=== PATIENT | male | born 1960 | race Caucasian/White ===

== ENCOUNTER 2016-08-12 16:44 | Emergency (ER) | payer OTHER ==
[~2016-08-12] VITALS: Ht 152.4 cm; Wt 68.2 kg
[~2016-08-12 16:44] MED LIST: GABA100C PO; NALT50 PO; OMEP20 PO; QUET25TA PO
[2016-08-12 18:48] VITALS: BP 123/75
== END 2016-08-12 20:18 | disposition left against medical advice (07) ==
LOC: EMS 16:46
DX: F10.129 Alcohol abuse with intoxication, unspecified (principal); F20.9 Schizophrenia, unspecified; F31.9 Bipolar disorder, unspecified; I10 Essential (primary) hypertension; Z88.8 Allergy status to other drugs, medicaments and biological substances; Y90.9 Presence of alcohol in blood, level not specified
CPT/HCPCS: 99283

== ENCOUNTER 2016-08-13 04:56 | Emergency (ER) | payer OTHER ==
[~2016-08-13] VITALS: Ht 152.4 cm; Wt 72.7 kg
[2016-08-13 05:55] LABS: BASOPHILS % (AUTO) 1.2 % (0.0-2.0); EOSINOPHILS % (AUTO) 4.8 % (1.0-6.0); HEMATOCRIT 34.7 % (41-53); HEMOGLOBIN 11.8 g/dL (13.5-17.5); LYMPHOCYTES # (AUTO) 1.1 K/uL (1.0-4.8); LYMPHOCYTES % (AUTO) 35.3 % (22.0-44.0); MEAN CORPUSCULAR HEMOGLOBIN 29.2 pg (26.0-34.0); MEAN CORPUSCULAR HGB CONC 34.1 G/dL (31.0-37.0); MEAN CORPUSCULAR VOLUME 86 fL (80-100); MONOCYTES # (AUTO) 0.2 K/uL (0.1-1.0); MONOCYTES % (AUTO) 8.2 % (2.0-9.0); NEUTROPHILS # (AUTO) 1.5 K/uL (1.8-7.7); NEUTROPHILS % (AUTO) 50.5 % (40.0-70.0); PLATELET COUNT (AUTO) 130 K/uL (150-450); RED BLOOD CELL COUNT(AUTO) 4.04 MIL/uL (4.50-5.90); RED CELL DISTRIBUTION WIDTH 14.1 % (11.5-14.5)
[2016-08-13 06:02] LABS: ANION GAP 7 mmol/L (8-16); CALCIUM, TOTAL 7.9 mg/dL (8.8-10.5); CARBON DIOXIDE 30 mmol/L (22-29); CHLORIDE 104 mmol/L (98-107); POTASSIUM 3.4 mmol/L (3.5-5.1); SODIUM SERUM 141 mmol/L (136-145); UREA NITROGEN, BLOOD 7 mg/dL (7-18)
[2016-08-13 06:07] LABS: CREATININE 0.51 mg/dL (0.60-1.30); GLOMERULAR FILTR. RATE CALC > 60 mL/min (>60)
[2016-08-13 11:29] VITALS: BP 100/82
== END 2016-08-13 12:18 | disposition home or self-care (01) ==
LOC: EMS 04:58
DX: T51.91XA Toxic effect of unspecified alcohol, accidental (unintentional), initial encounter (principal); I10 Essential (primary) hypertension; Z88.8 Allergy status to other drugs, medicaments and biological substances; Y92.89 Other specified places as the place of occurrence of the external cause
CPT/HCPCS: 36415; 80048; 85025; 99284; G0480

== ENCOUNTER 2016-08-13 16:16 | Emergency (ER) | payer OTHER ==
[~2016-08-13] VITALS: Ht 172.7 cm; Wt 90.9 kg
[2016-08-13 17:21] LABS: GLUCOSE,POINT OF CARE 120 MG/DL (70-110)
[2016-08-13] MEDS ORDERED: SODIUM CHLORIDE 0.9% 1,000 ML IV ONE (18:15)
[2016-08-13 18:31] LABS: BASOPHILS % (AUTO) 0.7 % (0.0-2.0); EOSINOPHILS % (AUTO) 2.5 % (1.0-6.0); HEMOGLOBIN 11.9 g/dL (13.5-17.5); LYMPHOCYTES # (AUTO) 0.9 K/uL (1.0-4.8); LYMPHOCYTES % (AUTO) 28.1 % (22.0-44.0); MEAN CORPUSCULAR HEMOGLOBIN 29.4 pg (26.0-34.0); MEAN CORPUSCULAR HGB CONC 33.9 G/dL (31.0-37.0); MEAN CORPUSCULAR VOLUME 87 fL (80-100); MONOCYTES # (AUTO) 0.2 K/uL (0.1-1.0); MONOCYTES % (AUTO) 6.4 % (2.0-9.0); NEUTROPHILS # (AUTO) 1.9 K/uL (1.8-7.7); NEUTROPHILS % (AUTO) 62.3 % (40.0-70.0); PLATELET COUNT (AUTO) 126 K/uL (150-450); RED BLOOD CELL COUNT(AUTO) 4.04 MIL/uL (4.50-5.90); RED CELL DISTRIBUTION WIDTH 13.7 % (11.5-14.5); WHITE BLOOD COUNT (AUTO) 3.1 K/uL (4.5-11.0)
[2016-08-13 18:46] LABS: ANION GAP 7 mmol/L (8-16); CARBON DIOXIDE 30 mmol/L (22-29); CHLORIDE 103 mmol/L (98-107); CREATININE 0.59 mg/dL (0.60-1.30); GLOMERULAR FILTR. RATE CALC > 60 mL/min (>60); POTASSIUM 3.9 mmol/L (3.5-5.1); SODIUM SERUM 140 mmol/L (136-145); UREA NITROGEN, BLOOD 5 mg/dL (7-18)
[2016-08-13 18:52] LABS: ALANINE AMINOTRANSFERASE 78 U/L (12-78); ASPARTATE AMINOTRANSFERASE 135 U/L (15-37); BILIRUBIN,TOTAL 0.5 mg/dL (0.1-1.0); TOTAL PROTEIN, SERUM 6.5 g/dL (6.4-8.2)
[2016-08-13 21:06] VITALS: BP 125/74
== END 2016-08-13 21:29 | disposition home or self-care (01) ==
LOC: EMS 16:18
DX: F10.229 Alcohol dependence with intoxication, unspecified (principal); I10 Essential (primary) hypertension; Z88.8 Allergy status to other drugs, medicaments and biological substances; Y90.8 Blood alcohol level of 240 mg/100 ml or more
CPT/HCPCS: 36415; 80053; 82962; 83690; 85025; 96360; 96361; 99285; G0480; J7030

== ENCOUNTER 2018-04-21 16:32 | Emergency (ER) | payer OTHER ==
[~2018-04-21] VITALS: Ht 152.4 cm; Wt 89.5 kg
[~2018-04-21 16:32] MED LIST changes: -NALT50 PO; +NALT50TA6 PO
[2018-04-21 20:40] VITALS: BP 126/68
== END 2018-04-21 21:21 | disposition home or self-care (01) ==
LOC: EMS 16:33
DX: F10.229 Alcohol dependence with intoxication, unspecified (principal); F31.9 Bipolar disorder, unspecified; I10 Essential (primary) hypertension; F20.9 Schizophrenia, unspecified; Z88.8 Allergy status to other drugs, medicaments and biological substances; Z79.899 Other long term (current) drug therapy
CPT/HCPCS: 99283

== ENCOUNTER 2018-04-23 00:53 | Emergency (ER) | payer OTHER ==
[~2018-04-23] VITALS: Ht 152.4 cm; Wt 84.1 kg
[2018-04-23 02:50] LABS: BASOPHILS % (AUTO) 0.2 % (0.0-2.0); EOSINOPHILS % (AUTO) 0.4 % (1.0-6.0); LYMPHOCYTES # (AUTO) 1.8 K/uL (1.0-4.8); LYMPHOCYTES % (AUTO) 14.1 % (22.0-44.0); MEAN CORPUSCULAR HEMOGLOBIN 29.2 pg (26.0-34.0); MEAN CORPUSCULAR VOLUME 86 fL (80-100); MONOCYTES # (AUTO) 1.2 K/uL (0.1-1.0); MONOCYTES % (AUTO) 9.8 % (2.0-9.0); NEUTROPHILS # (AUTO) 9.6 K/uL (1.8-7.7); NEUTROPHILS % (AUTO) 75.5 % (40.0-70.0); PLATELET COUNT (AUTO) 292 K/uL (150-450); RED BLOOD CELL COUNT(AUTO) 5.13 MIL/uL (4.50-5.90); RED CELL DISTRIBUTION WIDTH 13.9 % (11.5-14.5)
[2018-04-23 02:54] LABS: ANION GAP 11 mmol/L (8-16); CALCIUM, TOTAL 8.4 mg/dL (8.8-10.5); CARBON DIOXIDE 23 mmol/L (22-29); CHLORIDE 100 mmol/L (98-107); CREATININE 0.68 mg/dL (0.60-1.30); GLOMERULAR FILTR. RATE CALC > 60 mL/min (>60); GLUCOSE,RANDOM 119 mg/dL (70-110); POTASSIUM 4.1 mmol/L (3.5-5.1); SODIUM SERUM 134 mmol/L (136-145); UREA NITROGEN, BLOOD 8 mg/dL (7-18)
[2018-04-23 02:59] LABS: ALANINE AMINOTRANSFERASE 74 U/L (12-78); ALBUMIN 3.7 g/dL (3.4-5.0); ALKALINE PHOSPHATASE 120 U/L (46-116); ASPARTATE AMINOTRANSFERASE 34 U/L (15-37); LIPASE 121 U/L (73-393); TOTAL PROTEIN, SERUM 7.4 g/dL (6.4-8.2)
[2018-04-23 03:14] LABS: BILIRUBIN,TOTAL 0.4 mg/dL (0.1-1.0)
[2018-04-23 06:45] VITALS: BP 134/70
== END 2018-04-23 09:58 | disposition home or self-care (01) ==
LOC: EMS 00:53
DX: F10.229 Alcohol dependence with intoxication, unspecified (principal); F31.9 Bipolar disorder, unspecified; I10 Essential (primary) hypertension; F20.9 Schizophrenia, unspecified; Z88.8 Allergy status to other drugs, medicaments and biological substances
CPT/HCPCS: 36415; 80053; 83690; 85025; 99284; G0480

== ENCOUNTER 2018-05-20 12:32 | Emergency (ER) | payer OTHER ==
[~2018-05-20] VITALS: Ht 152.4 cm; Wt 72.7 kg
[2018-05-20] MEDS ORDERED: IBUP-2070 PO (12:51)
[2018-05-20 12:59] LABS: GLUCOSE,POINT OF CARE 112 MG/DL (70-110)
[2018-05-20 17:04] VITALS: BP 106/73
== END 2018-05-20 17:08 | disposition home or self-care (01) ==
LOC: EMS 12:33
DX: F10.129 Alcohol abuse with intoxication, unspecified (principal); F31.9 Bipolar disorder, unspecified; I10 Essential (primary) hypertension; F20.9 Schizophrenia, unspecified; Z88.8 Allergy status to other drugs, medicaments and biological substances; Z79.899 Other long term (current) drug therapy; Y90.9 Presence of alcohol in blood, level not specified

== ENCOUNTER 2018-09-22 13:23 | Emergency (ER) | payer OTHER ==
[~2018-09-22] VITALS: Ht 177.8 cm; Wt 100.0 kg
[~2018-09-22 13:23] MED LIST changes: -GABA100C PO; +IBUP-2070 PO; -NALT50TA6 PO; -OMEP20 PO; -QUET25TA PO
[2018-09-22] MEDS ORDERED: SODIUM CHLORIDE 0.9% 1,000 ML IV ONE (15:15)
[2018-09-22 16:29] LABS: BASOPHILS % (AUTO) 0.8 % (0.0-2.0); EOSINOPHILS % (AUTO) 0.3 % (1.0-6.0); HEMOGLOBIN 12.6 g/dL (13.5-17.5); LYMPHOCYTES # (AUTO) 0.9 K/uL (1.0-4.8); LYMPHOCYTES % (AUTO) 15.9 % (22.0-44.0); MEAN CORPUSCULAR HEMOGLOBIN 29.1 pg (26.0-34.0); MEAN CORPUSCULAR HGB CONC 33.2 G/dL (31.0-37.0); MEAN CORPUSCULAR VOLUME 88 fL (80-100); MONOCYTES # (AUTO) 0.2 K/uL (0.1-1.0); MONOCYTES % (AUTO) 3.8 % (2.0-9.0); NEUTROPHILS # (AUTO) 4.6 K/uL (1.8-7.7); NEUTROPHILS % (AUTO) 79.2 % (40.0-70.0); PLATELET COUNT (AUTO) 245 K/uL (150-450); RED BLOOD CELL COUNT(AUTO) 4.35 MIL/uL (4.50-5.90); RED CELL DISTRIBUTION WIDTH 13.6 % (11.5-14.5)
[2018-09-22 16:37] LABS: ANION GAP 18 mmol/L (8-16); CALCIUM, TOTAL 7.9 mg/dL (8.8-10.5); CARBON DIOXIDE 21 mmol/L (22-29); CHLORIDE 107 mmol/L (98-107); GLOMERULAR FILTR. RATE CALC > 60 mL/min (>60); GLUCOSE,RANDOM 67 mg/dL (70-110); POTASSIUM 3.8 mmol/L (3.5-5.1); SODIUM SERUM 146 mmol/L (136-145); UREA NITROGEN, BLOOD 8 mg/dL (7-18)
[2018-09-22 16:43] LABS: ALANINE AMINOTRANSFERASE 54 U/L (12-78); ALBUMIN 2.8 g/dL (3.4-5.0); ALKALINE PHOSPHATASE 109 U/L (46-116); ASPARTATE AMINOTRANSFERASE 63 U/L (15-37); BILIRUBIN,TOTAL 0.3 mg/dL (0.1-1.0); TOTAL PROTEIN, SERUM 6.2 g/dL (6.4-8.2)
[2018-09-22] MEDS ORDERED: MAGNESIUM SULFATE 2 GM, MVI, ADULT NO.1 WITH VIT K 10 ML, THIAMINE HCL 100 MG, FOLIC AC... IV ONE ×5 (17:30)
[2018-09-22 23:02] VITALS: BP 119/86
[2018-09-25] MEDS ORDERED: THIA100T67 PO (11:10)
[2018-09-25] MEDS ORDERED: FOLI1 PO (11:11)
[2018-09-25] MEDS ORDERED: LIB25 PO ×2 (11:12→11:16)
[2018-09-25] MEDS ORDERED: LIB10 PO (11:17)
[2018-09-25] MEDS ORDERED: MULT-735 PO (11:19)
== END 2018-09-22 23:02 | disposition home or self-care (01) ==
LOC: EMS 13:24
DX: F10.129 Alcohol abuse with intoxication, unspecified (principal); I10 Essential (primary) hypertension; F31.9 Bipolar disorder, unspecified; F20.9 Schizophrenia, unspecified; Z88.8 Allergy status to other drugs, medicaments and biological substances; Y90.8 Blood alcohol level of 240 mg/100 ml or more
CPT/HCPCS: 36415; 80053; 85025; 93005; 96365; 96366; 99284; G0480; J3411; J3475; J3490 ×2; J7030

== ENCOUNTER 2018-09-23 00:20 | Emergency (ER) | payer OTHER ==
[~2018-09-23] VITALS: Ht 149.9 cm; Wt 79.5 kg
[2018-09-23 00:29] VITALS: BP 144/97
[2018-09-23] MEDS ORDERED: LORazepam 1 MG TABLET PO ONE (04:15)
[2018-09-25] MEDS ORDERED: THIA100T67 PO (11:10)
[2018-09-25] MEDS ORDERED: FOLI1 PO (11:11)
[2018-09-25] MEDS ORDERED: LIB25 PO ×2 (11:12→11:16)
[2018-09-25] MEDS ORDERED: LIB10 PO (11:17)
[2018-09-25] MEDS ORDERED: MULT-735 PO (11:19)
== END 2018-09-23 08:14 | disposition home or self-care (01) ==
LOC: EMS 00:21
DX: F10.129 Alcohol abuse with intoxication, unspecified (principal); F31.9 Bipolar disorder, unspecified; F20.9 Schizophrenia, unspecified; I10 Essential (primary) hypertension; Z88.8 Allergy status to other drugs, medicaments and biological substances; Y90.7 Blood alcohol level of 200-239 mg/100 ml
CPT/HCPCS: 36415; 99285; G0480

== ENCOUNTER 2021-02-24 03:15 | Emergency (ER) | payer OTHER ==
[~2021-02-24 03:15] MED LIST changes: +FOLI-130 PO; -IBUP-2070 PO; +LIB10 PO; +LIB25 PO; +MULT-735 PO; +THIAMINE HCL100 MG PO
[2021-02-24] MEDS ORDERED: ChlordiazePOXIDE HCL 25 MG CAPSULE PO ONE (05:45)
[2021-02-24 06:23] VITALS: BP 133/78
== END 2021-02-24 07:00 | disposition home or self-care (01) ==
LOC: EMS 03:16
DX: T83.091A Other mechanical complication of indwelling urethral catheter, initial encounter (principal); F31.9 Bipolar disorder, unspecified; I10 Essential (primary) hypertension; F20.9 Schizophrenia, unspecified; Z88.8 Allergy status to other drugs, medicaments and biological substances; Y84.6 Urinary catheterization as the cause of abnormal reaction of the patient, or of later complication, without mention of misadventure at the time of the procedure
CPT/HCPCS: 36415; 99283; G0480; 51702; 99284

== ENCOUNTER 2021-08-28 18:17 | Emergency (ER) | payer MEDICAID, OTHER ==
[~2021-08-28] VITALS: Ht 170.2 cm; Wt 84.1 kg
[~2021-08-28 18:17] MED LIST changes: +CHLO10CA7 PO; -LIB10 PO
[2021-08-28] MEDS ORDERED: SODIUM CHLORIDE 0.9% 1,000 ML IV ONE (19:15)
[2021-08-28 20:06] LABS: BASOPHILS % (AUTO) 1.1 % (0.0-2.0); EOSINOPHILS % (AUTO) 0.5 % (1.0-6.0); HEMATOCRIT 36.9 % (41-53); HEMOGLOBIN 12.7 g/dL (13.5-17.5); LYMPHOCYTES # (AUTO) 1.6 K/uL (1.0-4.8); LYMPHOCYTES % (AUTO) 29.2 % (22.0-44.0); MEAN CORPUSCULAR HGB CONC 34.3 G/dL (31.0-37.0); MEAN CORPUSCULAR VOLUME 82 fL (80-100); MONOCYTES # (AUTO) 0.5 K/uL (0.1-1.0); NEUTROPHILS # (AUTO) 3.2 K/uL (1.8-7.7); NEUTROPHILS % (AUTO) 60.2 % (40.0-70.0); PLATELET COUNT (AUTO) 274 K/uL (150-450); RED BLOOD CELL COUNT(AUTO) 4.53 MIL/uL (4.50-5.90); RED CELL DISTRIBUTION WIDTH 14.6 % (11.5-14.5)
[2021-08-28 20:14] LABS: ANION GAP 15 mmol/L (8-16); CALCIUM, TOTAL 8.6 mg/dL (8.8-10.5); CARBON DIOXIDE 24 mmol/L (22-29); CHLORIDE 97 mmol/L (98-107); CREATININE 0.78 mg/dL (0.60-1.30); GLOMERULAR FILTR. RATE CALC > 60 mL/min (>60); GLUCOSE,RANDOM 93 mg/dL (70-110); POTASSIUM 3.4 mmol/L (3.5-5.1); SODIUM SERUM 136 mmol/L (136-145); UREA NITROGEN, BLOOD 13 mg/dL (7-18)
[2021-08-28 20:19] LABS: ALANINE AMINOTRANSFERASE 66 U/L (12-78); ALBUMIN 3.4 g/dL (3.4-5.0); ALKALINE PHOSPHATASE 108 U/L (46-116); ASPARTATE AMINOTRANSFERASE 43 U/L (15-37); BILIRUBIN,TOTAL 0.4 mg/dL (0.1-1.0); TOTAL PROTEIN, SERUM 6.9 g/dL (6.4-8.2)
[2021-08-28 20:31] LABS: SALICYLATE 0.9 mg/dL (2.8-20.0)
[2021-08-28 22:10] LABS: ACETAMINOPHEN < 2 mcg/mL (10-30)
[2021-08-29 05:56] VITALS: BP 125/68
== END 2021-08-29 06:29 | disposition home or self-care (01) ==
LOC: EMS 18:27
DX: F10.229 Alcohol dependence with intoxication, unspecified (principal); R41.82 Altered mental status, unspecified; I10 Essential (primary) hypertension; F31.9 Bipolar disorder, unspecified; F20.9 Schizophrenia, unspecified; Z88.8 Allergy status to other drugs, medicaments and biological substances; Z79.899 Other long term (current) drug therapy; Y90.8 Blood alcohol level of 240 mg/100 ml or more
CPT/HCPCS: 70450; 72125; 80053; 85025; 93005; 99285; G0480; J7030; G0481

== ENCOUNTER 2023-03-26 12:12 | Emergency (ER) | payer OTHER ==
[~2023-03-26] VITALS: Ht 157.5 cm; Wt 77.3 kg
[2023-03-26] MEDS ORDERED: THIA100T92 PO (13:20)
[2023-03-26] MEDS ORDERED: MULT-711 PO (13:20)
[2023-03-26 13:27] VITALS: TEMP 98.4
[2023-03-26 14:28] VITALS: BP 108/64; PULSE 76; RESP 16
== END 2023-03-26 14:29 | disposition home or self-care (01) ==
LOC: EMS 12:13
DX: F10.229 Alcohol dependence with intoxication, unspecified (principal); F31.9 Bipolar disorder, unspecified; I10 Essential (primary) hypertension; F20.9 Schizophrenia, unspecified; Z88.8 Allergy status to other drugs, medicaments and biological substances; Y90.9 Presence of alcohol in blood, level not specified
CPT/HCPCS: 99283; Z7502